=== PATIENT | female | born 1965 | race American Indian/Alaskan Native ===

== ENCOUNTER 2017-06-01 05:55 | Day surgery (SDC) | payer BC ==
[2017-05-23 09:26] VITALS: BMI 34.5
[2017-06-01 07:02] VITALS: O2SAT 100
[2017-06-01 07:15] LABS: BLOOD UREA NITROGEN 12 mg/dL (7-17); CALCIUM 8.7 mg/dl (8.6-10.4); GFR AFRICAN-AMERICAN > 60; GFR NON-AFRICAN AMERICAN > 60
[2017-06-01] MEDS ORDERED: Midazolam 2 MG/2 ML VIAL ONE (07:54)
[2017-06-01] MEDS ORDERED: Propofol 10 mg/ml Inj (20 ML) ONE (07:54)
[2017-06-01] MEDS ORDERED: Lactated Ringer's 1,000 ML IV ONE (08:01)
[2017-06-01] MEDS ORDERED: ceFAZolin IV 2 gm in Dextrose 2 GM/50 ML BAG IVPB ONE (09:01)
[2017-06-01] MEDS ORDERED: Clindamycin 2% Vaginal Cream(40 gm) ONE (09:13)
--- NOTE | 2017-06-01 09:28 | PCM.SURG1 ---
Surgeon's Initial Post Op Note - Surgeon's Notes Surgeon: Asia Smith mD Supervisor [place]: none Type of Anesthesia: General LMA Pre-Operative Diagnosis: Abnormal uterine bleeding, fibroiud uterus Operative Findings: enlarged 30 week size fibroid utuers, enlarged aborting mass suspcion for myoma, frozen section benign ~ 10 cm mass, hysterosocy perofmred to see orinationg of mass, unsure if ostia visuluzed, portion of mass removed vaginally in addtion to frozen, hemostaiss obtained with monsels. Procedure aborted and not completed due to concers of increased size of myoma type lesion and concerns for obtaining hemostasis. Post-Operative Diagnosis: same as above, myoma Operation Performed: Exam under anestehsia, vaginal myomectomy, hystersocpy Specimen/Specimens Removed: removal of portion of mass Estimated Blood Loss: EBL {In ML}: 75 Blood Products Given: N/A Drains Used: No Drains Post-Op Condition: Good Date of Surgery/Procedure: 06/01/17 Time of Surgery/Procedure: 08:00
[2017-06-01] MEDS ORDERED: HYDROmorphone 0.5 mg/0.5 ml ISec IVP PRN (09:37)
[2017-06-01 10:19] LABS: BASO % 0.6 % (0.0-2.0); EOS # 0.2 K/uL (0.0-0.7); EOS % 4.4 % (0.0-4.0); HEMOGLOBIN 10.9 g/dL (11.0-16.0); LYMPH # 0.4 K/uL (1.0-4.3); LYMPH % 9.6 % (20.0-40.0); MEAN CELL VOLUME 89.9 fL (81.0-99.0); MEAN CORPUSCULAR HEMOGLOBIN 29.7 pg (27.0-31.0); MEAN CORPUSCULAR HGB CONC 33.1 g/dL (33.0-37.0); MEAN PLATELET VOLUME 7.7 fL (7.2-11.7); MONO # 0.3 K/uL (0.0-0.8); MONO % 8.3 % (0.0-10.0); NEUT # 2.9 K/uL (1.8-7.0); NEUT % 77.1 % (50.0-75.0); PLATELET COUNT 267 K/uL (130-400); RBC 3.66 Mil/uL (3.80-5.20); RED CELL DISTRIBUTION WIDTH 16.3 % (11.5-14.5); WHITE BLOOD COUNT 3.7 K/uL (4.8-10.8)
[2017-06-01 10:58] LABS: ANISOCYTOSIS SLIGHT; BASOPHIL 1 % (0-2); EOSINOPHIL 3 % (0-4); LYMPHOCYTE 5 % (20-40); MONOCYTE 7 % (0-10); NEUTROPHIL 84 % (50-75); OVALOCYTES SLIGHT; PLATELET ESTIMATE NORMAL (NORMAL); TOTAL CELLS COUNTED 100
[2017-06-01 12:18] VITALS: RESP 18
[2017-06-01 12:19] VITALS: BP 121/71; PULSE 63; TEMP 98.7
--- NOTE | 2017-06-01 16:06 | OP ---
PROCEDURE DATE: 06/01/2017 PREOPERATIVE DIAGNOSES: Abnormal uterine bleeding, fibroid uterus. POSTOPERATIVE DIAGNOSES: Abnormal uterine bleeding, fibroid uterus with aborting myoma. OPERATION PERFORMED: Exam under anesthesia, partial vaginal myomectomy, hysteroscopy. SURGEON: Asia Smith MD. SKILLED NURSING FACILITY COUNSELOR: None. TYPE OF ANESTHESIA: General LMA. OPERATIVE FINDINGS: Enlarged 30 weeks' size fibroid uterus, enlarged aborting mass suspicious for myoma. Frozen section, benign 10 cm aborting mass approximately 00:25 hysteroscopy performed to see origination of mass. Unsure if ostia visualized. Portion of mass removed vaginally in addition to frozen. Hemostasis was obtained with Monsel. Procedure aborted and not completed due to concerns of increasing size of myoma and unable to complete vaginal resection for concerns of obtaining hemostasis. ESTIMATED BLOOD LOSS: 75 mL. BLOOD PRODUCTS: None. COMPLICATIONS: None. SPECIMEN REMOVED: A portion of mass suspected to be leiomyoma. DESCRIPTION OF PROCEDURE: The patient was taken to the operating where she was given general anesthesia. Once found to be adequate, she was placed on the operating table in dorsal supine position. The patient was then prepped and draped in the usual sterile fashion. A time-out confirmed correct patient and correct procedure. A red rubber catheter was inserted into the urethra to drain the bladder. Following this, a [place] retractor was placed in the anterior posterior fornix of vagina and a large erythematous mass was protruding into the vagina. No cervical tissue clearly identified. Upon visualization and inspection, the mass appeared to be extending through the entire length of the vagina. A Noland catheter was inserted to drain the bladder and a tenaculum was placed onto the mass portion and a small portion of the mass was carefully resected using a Bovie and the mass was then sent for frozen section. Frozen section was 01:50 aborted to be noted a benign smooth muscle mass. No evidence of malignancy. Upon further operation, the mass was attempted to be resected in a small portion using the Bovie and Monsel solution; however, upon doing hysteroscopy with going inferior to the mass, there was a cavity-type lesion to be noted with the mass being attached on that posterior wall and unsure if ostia were visualized. At that point, the procedure was concluded as unable to complete the procedure hysteroscopically or vaginally. Hemostasis was obtained with applying pressure and Monsel solution. There was good hemostasis noted. All instruments were removed. At the end of the procedure, all needle, sponge, and instrument counts were noted as correct x2. The patient tolerated the procedure well and was transferred to the recovery room in stable condition. Asia Smith MD JAIME
== END 2017-06-01 13:47 | disposition home or self-care (01) ==
LOC: C.SDS 05:55
PROVIDERS: ATTEND Obstetrics & Gynecology
DX: N93.9 Abnormal uterine and vaginal bleeding, unspecified (principal); D25.9 Leiomyoma of uterus, unspecified
CPT/HCPCS: 36415; 58561; 80048; 85025; 86850; 86900; 88305; 88331; 88342; J0690; J1170; J2250; J2704; J3010; J7120